=== PATIENT | female | born 1975 | race Two or more races ===

== ENCOUNTER 2022-10-16 10:58 | Emergency (ER) | payer OTHER ==
[~2022-10-16] VITALS: Ht 177.8 cm; Wt 81.6 kg
== END 2022-10-16 20:00 | disposition home or self-care (01) ==
LOC: ER 10:58
DX: K80.20 Calculus of gallbladder without cholecystitis without obstruction (principal)

== ENCOUNTER 2022-11-25 11:45 | Emergency (ER) | payer OTHER ==
[~2022-11-25] VITALS: Ht 177.8 cm; Wt 81.6 kg
== END 2022-11-25 15:42 | disposition home or self-care (01) ==
LOC: ER 11:45
DX: H83.09 Labyrinthitis, unspecified ear (principal); M62.838 Other muscle spasm; Z88.0 Allergy status to penicillin

== ENCOUNTER 2024-05-27 19:10 | Emergency (ER) | payer OTHER ==
[~2024-05-27] VITALS: Ht 175.3 cm; Wt 83.0 kg
[2024-05-27] MEDS ORDERED: GUAIFENESIN/DEXTROMETHORPHAN 10ML BLIST.PACK PO ONE (20:00)
[2024-05-27 20:58] LABS: HEMATOCRIT 30.4 % (36.0-45.00); MEAN CORPUSCULAR HGB CONC 30.6 g/dl (32.0-36.0); PLATELET COUNT 312 K/uL (150-450); RED BLOOD COUNT 4.41 M/uL (4.00-6.00); RED CELL DISTRIBUTION WIDTH 18.7 % (11.5-14.5)
[2024-05-27 21:00] LABS: HEMOGLOBIN 9.3 g/dL (12.0-15.00); MEAN CELL VOLUME 68.9 fL (80.00-100.00)
[2024-05-27] MEDS ORDERED: QC TUSSIN DM L118 ML PO (21:34)
[2024-05-27] MEDS ORDERED: ZITHROMAX500 MG PO (21:34)
== END 2024-05-27 22:14 | disposition home or self-care (01) ==
LOC: ER 19:12
PROVIDERS: Nurse Practitioner Family
DX: J06.9 Acute upper respiratory infection, unspecified (principal); J00 Acute nasopharyngitis [common cold]; Z20.822 Contact with and (suspected) exposure to COVID-19; Z88.0 Allergy status to penicillin